=== PATIENT | female | born 1970 | race Caucasian/White ===

== ENCOUNTER → 2016-08-28 | Outpatient (CLI) | payer OTHER ==
[~2016-08-28] MED LIST: ASPIRIN 81M81 MG/TA2 PO; BUSPAR DIVIDOSE15 MG PO; CELEXA40 MG PO; ESTRACE 1MG1 MG/TAB PO; FLAGYL500 MG PO; FLEXERIL 1010 MG/TAB; MINIPRESS 1M1 MG/CAP; MOBIC15 MG PO; NORCO 325 MG-51 TAB PO; PRILOSEC 20MG20 MG PO; PROMETHAZINE12.5 M5 PO; ULTRAM 50MG TAB50 MG PO; ZYRTEC 10MG10 MG PO
== END ==
LOC: MC.RAD 10:26
DX: Z12.31 Encounter for screening mammogram for malignant neoplasm of breast (principal)

== ENCOUNTER → 2017-10-15 | Outpatient (CLI) | payer OTHER | LOC: MC.RAD 13:00 | DX: Z12.31 Encounter for screening mammogram for malignant neoplasm of breast (principal) ==

== ENCOUNTER 2018-03-10 19:21 | Emergency (ER) | payer OTHER ==
[~2018-03-10] VITALS: Ht 157.5 cm; Wt 79.1 kg
[2018-03-10 19:25] VITALS: BP 144/82; TEMP 98.7
[2018-03-10] MEDS ORDERED: ZANTAC 150150 MG (20:31)
[2018-03-10 20:58] VITALS: PULSE 78
== END 2018-03-10 20:59 | disposition home or self-care (01) ==
LOC: COL.ER 19:21
DX: S06.0X0A Concussion without loss of consciousness, initial encounter (principal); S70.01XA Contusion of right hip, initial encounter; F41.9 Anxiety disorder, unspecified; F32.9 Major depressive disorder, single episode, unspecified; F43.10 Post-traumatic stress disorder, unspecified; W00.0XXA Fall on same level due to ice and snow, initial encounter

== ENCOUNTER 2018-03-19 14:30 | Outpatient (RCR) | payer OTHER ==
[~2018-03-19 14:30] MED LIST changes: +ZANTAC 150150 MG
== END 2018-04-13 | disposition home or self-care (01) ==
LOC: WSPT
DX: M79.10 Myalgia, unspecified site (principal); M54.31 Sciatica, right side; M25.562 Pain in left knee; M25.561 Pain in right knee

== ENCOUNTER 2018-09-09 11:00 | Outpatient (RCR) | payer OTHER | END 2018-10-20 13:26 | disposition home or self-care (01) | LOC: WSPT | DX: M54.5 Low back pain (principal) ==

== ENCOUNTER 2018-09-30 09:15 | Outpatient (RCR) | payer OTHER | END 2018-12-29 | disposition home or self-care (01) | LOC: WSPT | DX: M54.5 Low back pain (principal) ==

== ENCOUNTER → 2018-12-03 | Outpatient (CLI) | payer OTHER | LOC: MC.RAD 08:38 | DX: Z12.31 Encounter for screening mammogram for malignant neoplasm of breast (principal) ==

== ENCOUNTER → 2019-12-10 | Outpatient (CLI) | payer OTHER | LOC: MC.RAD 10:36 | DX: Z12.31 Encounter for screening mammogram for malignant neoplasm of breast (principal) ==

== ENCOUNTER → 2021-02-26 | Outpatient (CLI) | payer OTHER | LOC: MC.RAD 08:17 | DX: Z12.31 Encounter for screening mammogram for malignant neoplasm of breast (principal) ==

== ENCOUNTER → 2022-03-15 | Outpatient (CLI) | payer OTHER | LOC: MC.RAD 10:00 | DX: Z12.31 Encounter for screening mammogram for malignant neoplasm of breast (principal) ==

== ENCOUNTER → 2023-06-24 | Outpatient (CLI) | payer OTHER | LOC: MC.RAD 16:52 | DX: Z12.31 Encounter for screening mammogram for malignant neoplasm of breast (principal) ==